=== PATIENT | female | born 1945 | race Caucasian/White ===

== ENCOUNTER 2017-05-06 17:11 | Emergency (ER) | payer MEDICAID ==
[~2017-05-06] VITALS: Ht 139.7 cm; Wt 59.0 kg
[2017-05-06 17:14] VITALS: Ht 139.7 cm; Wt 59.0 kg
[2017-05-06] MEDS ORDERED: KETOROLAC 30 MG INJ IM STA (17:25)
--- NOTE | 2017-05-06 17:33 | ERD ---
ER Documentation Chief Complaint Date/Time DATE: 05/06/17 TIME: 17:30 Chief Complaint RADICULAR PAIN FROM CERVICAL ALL THE WAY DOWN THE RIGHT ARM HPI This a 70-year-old female who presents emergency department today with her [id number] complaining of pain in her back that goes into her right arm. States she was watching TV when this happens. States she took Tylenol with no improvement in pain. States this happened 3 years ago went to the emergency room and got medicine for pain. Denies any fevers or chills, cough, neck pain. ROS All systems reviewed and are negative except as per history of present illness. Medications Home Meds Active Scripts Tramadol HCl (Tramadol HCl) 50 Mg Tablet, 50 MG PO Q4 Y for PAIN, #20 TAB Prov:EVELYN SIMS PA-C 05/06/17 Physical Exam Vitals Vital Signs Date Time Temp Pulse Resp B/P Pulse Ox O2 Delivery O2 Flow Rate FiO2 05/06/17 17:14 98.8 82 20 199/88 97 Physical Exam Const: crying, Head: Atraumatic Eyes: Normal Conjunctiva ENT: Normal External Ears, Nose and Mouth. Neck: Full range of motion..~ No meningismus.No midline tenderness Resp: Clear to auscultation bilaterally Cardio: Regular rate and rhythm, no murmurs Abd: Soft, non tender, non distended. Normal bowel sounds Skin: No petechiae or rashes Back: No midline or flank tenderness. Tenderness to palpation medial border of scapula and lower trapezius. Ext: No cyanosis, or edema. Full active range of motion right arm with pain. Pulses 2+. Distal neurovascularly intact. Neur: Awake and alert. Cranial nerves II through XII intact. Planimeter Operator strength 5 out of 5. No gait ataxia. Patient ambulates with a cane. Psych: Normal Mood and Affect Results 24 hrs Current Medications Medications (Trade) Dose Ordered Sig/Diane Route PRN Reason Start Time Stop Time Status Last Admin Dose Admin Ketorolac Tromethamine (Toradol) 30 mg ONCE STAT IM 05/06/17 17:25 05/06/17 17:26 DC 05/06/17 17:34 DIAGNOSTIC IMAGING REPORT Patient: ÁNGEL RALPH : 1945 Age: 72 Sex: F MR #: [id number] DOS: 05/06/17 0000 Ordering MD: EVELYN SIMS PA-C Location: [facility] Room/Bed: PROCEDURE: XR Chest. CLINICAL INDICATION: Chest pain TECHNIQUE: AP view of the chest was performed. COMPARISON: None FINDINGS: Mild cardiomegaly and vascular congestion are present. No signs of pleural fluid or pneumothorax are seen. The osseous structures and soft tissues are unremarkable, and osteopenic. IMPRESSION: Mild cardiomegaly, vascular congestion, and osteopenia. RPTAT: QQ .Adelaide Glover MD, MD Date Time Electronically viewed and signed by .Adelaide Glover MD, on 05/06/2017 18:40 .F/ CC: EVELYN SIMS PA-C Procedures/MDM This is a 72-year-old female presents emergency department today complaining of right-sided back pain that goes into her right arm. On physical exam patient has tenderness along the border of her scapula and lower trapezius. She is very tender to palpation there. She has no thoracic or cervical midline tenderness. She does have full active range of motion of her neck and she has no focal neurologic deficits and no gait ataxia. Patient does ambulate with a cane. I do not feel the patient requires a head CT scan. Low suspicion for acute hemorrhage, mass, abscess, meningitis. I did discuss the patient with Dr. Urena and he is recommended a chest x-ray and EKG in addition to pain medication. EKG read and interpreted by Dr. Urena Rate [address] elevation Low suspicion for acute [place], PE, pericarditis Chest x-ray showsMild cardiomegaly, Vascular congestion and osteopenia. There is no signs of pleural fluid or pneumothorax. Patient symptoms at this time is consistent with muscle spasm versus strain versus sprain. Do not feel that she requires further workup or imaging at this time.Low suspicion for acute fracture dislocation and spine. Low suspicion for cauda equina or abscess. Patient is afebrile and otherwise well-appearing. Patient was given Toradol here in the emergency department and a sling to wear for comfortAnd pain improved. Patient was given a prescription for short course of tramadol. She was instructed to apply heat to the painful area and do some massage. Patient and [id number] understood. Dr. Urena has seen and evaluated the patient and is in agreement with the plan.. Departure Diagnosis: Primary Impression: Pain of right arm Condition: EVELYN Chowdary PA-C May 06, 2017 17:33
--- NOTE | 2017-05-06 18:40 | RADRPT ---
PROCEDURE: XR Chest. CLINICAL INDICATION: Chest pain TECHNIQUE: AP view of the chest was performed. COMPARISON: None FINDINGS: Mild cardiomegaly and vascular congestion are present. No signs of pleural fluid or pneumothorax are seen. The osseous structures and soft tissues are unremarkable, and osteopenic. IMPRESSION: Mild cardiomegaly, vascular congestion, and osteopenia. RPTAT: QQ .Adelaide Glover MD, MD Date Time Electronically viewed and signed by .Adelaide Glover MD, MD on 05/06/2017 18:40 .F/
[2017-05-06] MEDS ORDERED: TRAM50TA2 PO (18:53)
[2017-05-06 19:20] VITALS: BP 160/73; PULSE 73; RESP 18
== END 2017-05-06 19:15 | disposition home or self-care (01) ==
LOC: FTE 17:11
DX: M79.601 Pain in right arm (principal)
CPT/HCPCS: 71010; 93005; 96372; J1885; Z7502